=== PATIENT | male | born 1960 | race African-American/Black ===

== ENCOUNTER 2018-04-06 15:57 | Emergency (ER) | payer BC, OTHER ==
[~2018-04-06] VITALS: Ht 180.3 cm; Wt 97.5 kg
[~2018-04-06 15:57] MED LIST: PREDNISONE20 MG ORAL
--- NOTE | 2018-04-06 17:15 | Emergency Room Report ---
History of Present Illness General Chief Complaint: Pain Source: Patient Present Illness HPI 57 y.o. M with no sig pmhx, here c/o 2 days of right knee pain post twisting ankle and falling on right knee on hard concrete. c/o pain 10/10 in right knee, denies pain radiation, tingling/numbness, did not take any pain meds. walkking and bending makes pain worse. denies head trauma, sob, cp, palpitaiton. denies ankle pain and reduced ROM Allergies: Coded Allergies: No Known Allergies (Unverified , 11/26/15) Patient History Past Medical History: see triage record Past Surgical History: none Pertinent Family History: none Reviewed Nursing Documentation: PMH: Agreed; PSxH: Agreed Nursing Documentation-PMH Hx Asthma: Yes Review of Systems All Other Systems: negative except mentioned in HPI Physical Exam Vital Signs Date Time Temp Pulse Resp B/P (MAP) Pulse Ox O2 Delivery O2 Flow Rate FiO2 04/06/18 16:35 98.5 73 18 145/87 93 Room Air 98.4 Sp02 EP Interpretation: reviewed, normal General Appearance: normal inspection, well appearing, no apparent distress, alert Eyes: bilateral eye normal inspection, bilateral eye PERRL ENT: normal ENT inspection, hearing grossly normal Neck: normal inspection, full range of motion, supple Respiratory: normal inspection, chest non-tender, lungs clear, normal breath sounds, no rhonchi, no respiratory distress Cardiovascular #1: normal inspection, normal peripheral pulses, regular rate, rhythm, no edema, no gallop, no murmur Cardiovascular #2: 2+ dorsalis pedis (R), 2+ dorsalis pedis (L) Gastrointestinal: normal inspection, normal bowel sounds, non tender, soft Rectal: deferred Genitourinary: deferred Musculoskeletal: back normal, non-tender, no calf tenderness, decreased range of motion - right knee with flexion, other - bony prominence TTP on right medial knee Neurologic: normal inspection, alert, oriented x3, responsive Skin: normal inspection, normal color, no rash, warm/dry Lymphatic: normal inspection, no adenopathy Medical Decision Making PA Attestation all pt's dx, orders, tx were reviewed and discussed with my supervising physician Dr Huizar Diagnostic Impression: Primary Impression: Contusion, knee Additional Impression: Knee sprain ER Course 57 y.o. M with no sig pmhx, here c/o 2 days of right knee pain post twisting ankle and falling on right knee on hard concrete. c/o pain 10/10 in right knee, denies pain radiation, tingling/numbness, did not take any pain meds. walkking and bending makes pain worse. denies head trauma, sob, cp, palpitaiton. denies ankle pain and reduced RM. Ddx considered but are not limited to knee fx, knee contusion, meniscus tear, knee dislocation. Vital signs: are WNL, pt. is afebrile H&PE are most consistent with knee contusion ORDERS: R knee Xray 3v, naproxen 500mg bid x10d ED INTERVENTIONS: None required at this time. DISCHARGE: At this time pt. is stable for d/c to home. Will provide printed patient care instructions, and any necessary prescriptions. Care plan and follow up instructions have been discussed with the patient prior to discharge. Other X-Ray Diagnostic Results Other X-Ray Diagnostic Results : X-Ray ordered: R knee # of Views/Limited Vs Complete: 3 View Indication: Other - fall EP Interpretation: Yes PA Xray: Interpretation reviewed, by supervising MD, and agrees with findings. Interpretation: no dislocation, no soft tissue swelling, no fractures Impression: No acute disease Electronically Signed by: medhat elena PA-C Last Vital Signs Date Time Temp Pulse Resp B/P (MAP) Pulse Ox O2 Delivery O2 Flow Rate FiO2 04/06/18 16:35 98.5 73 18 145/87 93 Room Air 98.4 Status: improved Disposition: HOME, SELF-CARE Condition: Stable Scripts Naproxen* (NAPROSYN*) 250 Mg Tablet 500 MG ORAL TWICE A DAY for 10 Days, #20 TAB 0 Refills Prov: Medhat Mckinney 04/06/18 Patient Instructions: Knee Sprain Additional Instructions: take meds as directed, avoid heavy lifting, straneous physical activity. return to ED if symptoms worsen Medhat Mckinney Apr 06, 2018 17:15
[2018-04-06] MEDS ORDERED: NAPROXEN250 MG ORAL (18:34)
[2018-04-06 18:45] VITALS: BP 161/99
--- NOTE | 2018-04-07 11:07 | Diagnostic Imaging Report ---
Indications: Trauma, pain Technique: Three views of the right knee Comparison: None Findings: No acute fractures. No dislocations. Joint spaces are preserved. No radiopaque foreign body. Normal mineralization. Impression: No acute process
== END 2018-04-06 18:45 | disposition home or self-care (01) ==
LOC: EMR 17:00
DX: S83.91XA Sprain of unspecified site of right knee, initial encounter (principal); J45.909 Unspecified asthma, uncomplicated; S80.01XA Contusion of right knee, initial encounter; W18.30XA Fall on same level, unspecified, initial encounter; Y92.9 Unspecified place or not applicable
CPT/HCPCS: 99283